=== PATIENT | female | born 1970 | race Caucasian/White ===

== ENCOUNTER 2017-09-27 06:22 | Day surgery (SDC) | payer BC ==
[~2017-09-27 06:22] MED LIST: RINGER'S SOLUTION,LACTATED 1,000 ML IV PRN; ceFAZolin SODIUM 1 GM VIAL IV PRN
[2017-09-27] MEDS ORDERED: RINGER'S SOLUTION,LACTATED 1,000 ML IV ONE ×3 (07:28→09:24)
--- NOTE | 2017-09-27 09:38 | OR ---
Operative Report - Dictated Report Narrative: Date: 09/27/2017 Physician: Saeed Espinoza M.D. School Athletic Director: Ga Morocho PA-C Preoperative diagnosis: Right Shoulder SLAP tear, biceps tenosynovitis, partial- thickness supraspinatus tear, acromioclavicular joint arthritis Postoperative diagnosis: Right Shoulder type II SLAP tear, bicipital tenosynovitis, partial articular-sided supraspinatus tear, acromioclavicular joint arthritis Procedure: Right shoulder arthroscopy with biceps tenotomy, rotator cuff debridement, open distal clavicle resection Anesthesia: General plus regional Complications: None Estimated blood loss: Minimal Specimens: Bone for disposal Retained implants: None Drains: None Indications: Beverly Is a 47 year-old female who has been followed in my clinic with complaints of shoulder pain consistent with superior labral tear and bicipital tenosynovitis as well as tendinopathy and partial tearing of the supraspinatus and degenerative arthritis of the acromioclavicular joint. Physical exam and diagnostic imaging were consistent with his complaints and concern for the above. Conservative measures have failed including, but not limited to, passage of time, activity modification, medications, physical therapy/home exercise program, or injections. The risks, benefits, and alternatives were discussed in clinic. The risks being , bleeding, infection, blood clots, nerve, tendon, ligament, blood vessel injury, persistent pain, arthrosis, stiffness, need for prolonged therapy, need for additional procedures, and persistent symptoms. Consent was obtained in the clinic. Procedure: After marking the correct extremity in the preoperative holding area, a timeout was performed in the operating room. IV antibiotics consisting of 2 g of Ancef were administered prior to the procedure. A general followed by regional anesthetic was induced by the nurse shuttle buggy operator. This was in the supine position, then the patient was transitioned to a beachchair position with all bony prominences well-padded, head in neutral, the nonoperative arm well supported, and the legs padded with SCDs in place. The operative shoulder was then prepped and draped in a standard sterile fashion. Preoperatively the shoulder had full passive range of motion, and no instability. After marking out the bony landmarks, saline was infused into the joint through a posterior lateral portal site. A giovany incision was made, and the blunt trocar and cannula was introduced into the shoulder joint. An anterior working portal was placed in the rotator cuff interval using a spinal needle for guidance. Upon initial evaluation, the biceps tendon showed tenosynovitis with partial tearing at the bicipital anchor. The middle glenohumeral ligament was intact. Subscapularis tendon was intact. The glenoid showed grade 2 chondral changes. The humeral head articular surface showed no significant chondral changes. The anterior labrum was intact. The superior labrum demonstrated a degenerative type II tear. The pouch was of normal caliber with no loose bodies. The posterior labrum was intact. The supraspinatus tendon demonstrated tendinopathy as well as partial thickness articular sided tearing comprising about 25% of the footprint. The infraspinatus tendon was intact. Based on the arthroscopic findings, as well as exam and radiographic findings, it was elected to proceed with biceps tenotomy to address the SLAP tear and bicipital tenosynovitis. Arthroscopic scissors were used to tenotomize the biceps tendon at the anchor. A 4.0 mm shaver was used to debride the residual stump at the bicipital anchor. The shaver was then used to perform a light debridement of the articular side of the supraspinatus tendon. Attention was then turned to the subacromial space. Subacromial bursectomy was performed utilizing the prior portals. The coracoacromial ligament was intact with no significant fraying. The bursal side of the rotator cuff demonstrated no tearing. The acromial arch demonstrated normal morphology without anterior hooking and no impingement at the AC joint on the supraspinatus muscle belly. At this point all arthroscopic instruments were removed from the shoulder and we turned our attention to perform an open distal clavicle resection. A longitudinal incision centered over the before meals joint approximately 2-1/2 cm in length was made. Electrocautery was carried down to the level of the before meals joint capsule which was incised. The distal 1 cm of the clavicle was dissected out subperiosteally. An oscillating saw was then used to remove the distal 6-7 mm of the distal clavicle. After removal of the distal portion of the clavicle a rasp was used to smooth the underside of the acromion and remaining portion of the distal clavicle to remove any inferior osteophytes. The wound was then copiously irrigated with normal saline and closed in a layered fashion using a running 0 Vicryl to close the AC joint capsule, followed by interrupted 3-0 Vicryl in a deep dermal fashion. Skin and arthroscopic portal sites were then closed with interrupted 4-0 nylon. Dressings consisting of Xeroform, 4 x 4s, ABD, and tape were applied. All sponge, needle, blade, and instrument counts were correct prior to closing the wounds. The patient was awoken and transferred to the postanesthesia care unit in stable condition.
--- NOTE | 2017-09-27 09:43 | OR ---
Anesthesia Procedure Note - Anesthesia Procedure Note Date of Service: 09/27/17 Narrative: Vital Signs - Last Taken Temp 36.2 C L 09/27/17 07:18 Pulse 70 09/27/17 07:18 Resp 16 09/27/17 07:18 BP 116/73 09/27/17 07:18 Pulse Ox 95 09/27/17 07:18 O2 Oxygen Delivery Method Room Air 09/27/17 09:41 ANESTHESIA PROCEDURE NOTE Date of Procedure: 09/27/2017 Time of procedure: . Performed by: VESNA Bee CRNA, MSN Automatic Corn Grinder Operator: Jackeline Shaw RN. Preprocedure diagnosis: Right shoulder surgery. Post procedure diagnosis: Same. Procedure: Right Interscalene nerve block. Indications: Post right shoulder surgery pain relief. Findings: See below. Details of the procedure: The patient was brought to OR #4 and placed in semi- Fowlers position. The patient was prepped with chlorhexidine and using ultrasound guidance the right interscalene segment of the brachial plexus was identified and lidocaine 1% was infiltrated to the skin of the intended injection site. Under ultrasound guidance the interscalene nerve bundles were approached with visualization of a 2inch stimulator needle visualized unde ultrasound until a shoulder/arm response was identified on nerve stimulator. Once the stimulator response was effective at less than 0.5 mV and greater than 0.3 mV the bracheal plexus nerves at this level were surrounded with 30 mL bupivacaine 0.25% with 1-200,000 epinephrine. Please see radiology/ultrasound report for details and retained images of the procedure. EBL: 0 Fluids: N/A. Specimen: N/A. Post procedure condition: The patient tolerated the procedure well. No complications were noted. Thank you for this consultation. Rony Saldaña CRNA, [employer], MSN
[2017-09-27 11:13] VITALS: BP 109/69
== END 2017-09-27 06:23 | disposition home or self-care (01) ==
LOC: AMB 06:22
PROVIDERS: ATTEND Orthopaedic Surgery
PROC: 0PB90ZZ Excision of Right Clavicle, Open Approach (ICD-10-PCS; 2017-09-27)
PROC: 3E0T3BZ Introduction of Anesthetic Agent into Peripheral Nerves and Plexi, Percutaneous Approach (ICD-10-PCS; 2017-09-27)
PROC: 0RBJ4ZZ Excision of Right Shoulder Joint, Percutaneous Endoscopic Approach (ICD-10-PCS; principal; 2017-09-27 08:00)
DX: S43.431A Superior glenoid labrum lesion of right shoulder, initial encounter (principal); M75.21 Bicipital tendinitis, right shoulder; M75.111 Incomplete rotator cuff tear or rupture of right shoulder, not specified as traumatic; M13.811 Other specified arthritis, right shoulder; E11.9 Type 2 diabetes mellitus without complications; E03.9 Hypothyroidism, unspecified; E55.9 Vitamin D deficiency, unspecified; E66.9 Obesity, unspecified; Z68.32 Body mass index [BMI] 32.0-32.9, adult; F17.200 Nicotine dependence, unspecified, uncomplicated